=== PATIENT | female | born 1990 | race Caucasian/White ===

== ENCOUNTER 2017-03-27 01:30 | Emergency (ER) | payer OTHER ==
[2017-03-27] MEDS ORDERED: Ondansetron ODT 4 MG TAB ONE ×2 (02:33→05:29)
[2017-03-27 04:00] LABS: #Eosinphils 0.1 thou/uL (0.0-0.7); #Lymphocytes 2.3 thou/uL (1.20-3.40); #Monocytes 0.5 thou/uL (0.11-0.59); #Neutrophils 6.7 thou/uL (1.40-6.50); %Basophils 0.4 % (0.0-1.0); %Eosinophils 1.3 % (0.0-10.0); %Lymphocytes 24.1 % (21.0-51.0); %Monocytes 5.4 % (0.0-10.0); Hematocrit 41.5 % (36.0-47.0); Mean Platelet Volume 7.4 fL (7.4-10.4); White Blood Cell (WBC) Count 9.7 thou/uL (4.8-10.8)
[2017-03-27 04:16] LABS: ALT (SGPT) 12 U/L (8-55); AST (SGOT) 15 U/L (5-34); Alkaline Phosphatase 66 U/L (40-150); Anion Gap 13 mmol/L (10-20); BUN (Urea Nitrogen) 7 mg/dL (7.0-18.7); Bilirubin, Total 0.4 mg/dL (0.2-1.2); CK (CPK) 79 U/L (29-168); Calc. Creatinine Clearance 0 mL/min (70-130); Calcium 9.7 mg/dL (7.8-10.44); Carbon Dioxide 24 mmol/L (22-29); Chloride 105 mmol/L (98-107); Estimated GFR-MDRD Greater than 90; Globulin 3.4 g/dL (2.4-3.5); Lipase 53 U/L (8-78); Protein, Total 7.6 g/dL (6.0-8.3)
[2017-03-27 04:17] LABS: Troponin I Less than 0.010 ng/mL (< 0.028)
[2017-03-27 05:01] LABS: Bilirubin Negative (Negative); Blood, Urine Negative (Negative); Glucose, Urine (Dipstick) Negative (Negative); Ketone, Urine Negative (Negative); Nitrite Negative (Negative); Protein, Urine (Dipstick) Negative (Neg-Trace); Urobilinogen 0.2 mg/dL (0.2-1.0)
[2017-03-27 05:03] LABS: Bacteria/HPF Rare-Few HPF (None Seen); Hyaline Casts/LPF 0-3 HYALINE CAST LPF (0-3 Hyaline); Squamous Epithelial 0-3 HPF (0-3)
[2017-03-27] MEDS ORDERED: Lorazepam 1 MG TAB ONE (05:29)
--- NOTE | 2017-03-27 07:23 | RAD ---
CHEST 1 VIEW: Date: 03/27/17 HISTORY: Chest pain. Fever and cough. FINDINGS: Normal cardiac silhouette. Pulmonary vessels and hilum are normal. No consolidation or mass. No pneum othorax or osseous abnormality. IMPRESSION: No acute cardiopulmonary process. POS: PPP
== END 2017-03-27 05:54 | disposition home or self-care (01) ==
LOC: ERS 01:30
DX: R00.2 Palpitations (principal); N39.0 Urinary tract infection, site not specified
CPT/HCPCS: 36415; 36416; 71010; 80053; 81003; 81015; 82553; 83690; 84443; 84484; 84703; 85025; 85379; 87086; 93005; Q0162

== ENCOUNTER 2017-03-28 14:20 | Outpatient (CLI) | payer OTHER | END 2017-03-28 14:21 | disposition home or self-care (01) | LOC: BICRAD 14:20 | PROVIDERS: ATTEND Nurse Practitioner Family | DX: R06.02 Shortness of breath (principal) | CPT/HCPCS: 36415; 71020; 85379 ==

== ENCOUNTER 2017-03-29 19:06 | Emergency (ER) | payer OTHER ==
[2017-03-29 19:28] LABS: Bilirubin Negative (Negative); Blood, Urine Large (Negative); Glucose, Urine (Dipstick) Negative (Negative); Ketone, Urine > or equal to 80 mg/dL (Negative); Nitrite Negative (Negative); Protein, Urine (Dipstick) Trace mg/dL (Neg-Trace); Urobilinogen 0.2 mg/dL (0.2-1.0)
[2017-03-29 19:32] LABS: Bacteria/HPF Rare-Few HPF (None Seen); Hyaline Casts/LPF 0-3 HYALINE CAST LPF (0-3 Hyaline); RBC/HPF GREATER THAN 50-TNTC HPF (0-3)
[2017-03-29 19:35] LABS: #Basophils 0.1 thou/uL (0.0-0.2); #Eosinphils 0.1 thou/uL (0.0-0.7); #Lymphocytes 2.5 thou/uL (1.20-3.40); #Monocytes 0.8 thou/uL (0.11-0.59); #Neutrophils 4.8 thou/uL (1.40-6.50); %Basophils 0.8 % (0.0-1.0); %Eosinophils 0.8 % (0.0-10.0); %Lymphocytes 30.1 % (21.0-51.0); %Monocytes 9.7 % (0.0-10.0); Hematocrit 44.7 % (36.0-47.0); Mean Platelet Volume 7.7 fL (7.4-10.4); Red Blood Cell (RBC) Count 4.85 mill/uL (4.20-5.40); White Blood Cell (WBC) Count 8.2 thou/uL (4.8-10.8)
[2017-03-29 19:54] LABS: ALT (SGPT) 10 U/L (8-55); AST (SGOT) 15 U/L (5-34); Alkaline Phosphatase 71 U/L (40-150); Anion Gap 15 mmol/L (10-20); BUN (Urea Nitrogen) 6 mg/dL (7.0-18.7); Bilirubin, Total 1.2 mg/dL (0.2-1.2); Calc. Creatinine Clearance 0 mL/min (70-130); Calcium 9.7 mg/dL (7.8-10.44); Carbon Dioxide 24 mmol/L (22-29); Chloride 102 mmol/L (98-107); Estimated GFR-MDRD Greater than 90; Globulin 3.5 g/dL (2.4-3.5); Lipase 34 U/L (8-78); Protein, Total 8.1 g/dL (6.0-8.3)
[2017-03-29] MEDS ORDERED: Metoclopramide HCl 10 MG/2 ML VIAL ONE (19:55)
[2017-03-29] MEDS ORDERED: Famotidine/PF 20 mg/2ml Vial ONE (19:55)
== END 2017-03-29 22:26 | disposition home or self-care (01) ==
LOC: ERS 19:06
DX: R10.9 Unspecified abdominal pain (principal); R11.0 Nausea
CPT/HCPCS: 36415; 80053; 81003; 81015; 81025; 83690; 85025; 87086; 96365; 96368; 96372; J2765; S0028

== ENCOUNTER 2017-03-31 09:22 | Inpatient (IN) | payer OTHER ==
[2017-03-31] MEDS ORDERED: Ondansetron HCl/PF 4 MG/2 ML Vial ONE (09:56)
[2017-03-31 10:12] LABS: Bilirubin Negative (Negative); Blood, Urine Large (Negative); Clarity CLOUDY (Clear); Glucose, Urine (Dipstick) Negative (Negative); Leukocyte Small (Negative); Nitrite Negative (Negative); Protein, Urine (Dipstick) 30 mg/dL (Neg-Trace); Specific Gravity, Urine 1.023 (1.002-1.036); Urobilinogen 0.2 mg/dL (0.2-1.0)
[2017-03-31 10:14] LABS: #Eosinphils 0.1 thou/uL (0.0-0.7); #Lymphocytes 2.1 thou/uL (1.20-3.40); #Monocytes 0.5 thou/uL (0.11-0.59); #Neutrophils 3.6 thou/uL (1.40-6.50); %Basophils 0.7 % (0.0-1.0); %Eosinophils 1.1 % (0.0-10.0); %Lymphocytes 33.5 % (21.0-51.0); %Monocytes 8.5 % (0.0-10.0); %Neutrophils 56.2 % (42.0-75.0); Hemoglobin 14.5 g/dL (12.0-16.0); Mean Corpuscular HGB CONC 33.5 g/dL (32.0-36.0); Mean Corpuscular Volume 92.3 fl (81.0-99.0); Mean Platelet Volume 7.9 fL (7.4-10.4); Platelet Count 316 thou/uL (130-400); RBC Distribution Width 11.1 % (11.5-14.5); Red Blood Cell (RBC) Count 4.69 mill/uL (4.20-5.40); White Blood Cell (WBC) Count 6.4 thou/uL (4.8-10.8)
[2017-03-31 10:15] LABS: Bacteria/HPF None Seen HPF (None Seen); Hyaline Casts/LPF 0-3 HYALINE CAST LPF (0-3 Hyaline); Pathc Cast-AUWi Flag 0.94 (0-2.49); RBC/HPF GREATER THAN 50-TNTC HPF (0-3)
[2017-03-31 10:16] LABS: Pregnancy Test - Urine (BHCG) Negative (Negative); Pregu Control Background? CLEAR/WHITE (CLR/WHITE); Pregu Control Bar Appear? YES (CONTROL BAR); Specific Gravity 1.023 (1.002-1.036)
[2017-03-31 10:35] LABS: ALT (SGPT) 14 U/L (8-55); AST (SGOT) 21 U/L (5-34); Albumin 4.2 g/dL (3.5-5.0); Alkaline Phosphatase 66 U/L (40-150); Anion Gap 14 mmol/L (10-20); BUN (Urea Nitrogen) 5 mg/dL (7.0-18.7); Bilirubin, Total 1.1 mg/dL (0.2-1.2); Calc. Creatinine Clearance 0 mL/min (70-130); Calcium 9.8 mg/dL (7.8-10.44); Carbon Dioxide 24 mmol/L (22-29); Chloride 104 mmol/L (98-107); Estimated GFR-MDRD Greater than 90; Globulin 3.3 g/dL (2.4-3.5); Glucose 89 mg/dL (70-105); Lipase 44 U/L (8-78); Potassium 3.6 mmol/L (3.5-5.1); Protein, Total 7.5 g/dL (6.0-8.3); Sodium 138 mmol/L (136-145)
[2017-03-31] MEDS ORDERED: Ketorolac Tromethamine 30 MG/ML VIAL ONE (11:24)
[2017-03-31] MEDS ORDERED: Promethazine HCl 25 MG/ML VIAL ONE (12:06)
--- NOTE | 2017-03-31 13:09 | CT ---
CT ABDOMEN AND PELVIS WITH CONTRAST: Date: 03/31/17 HISTORY: Abdominal pain. COMPARISON: CT abdomen without contrast dated 11/10/03. FINDINGS: Lung bases are clear. No pericardial effusion. The appendix is not definitively seen, although there are no secondary signs of acute appendicitis. Kidneys are unremarkable. No hydronephrosis. There is a left interpolar renal calculus measuring 2.0 mm. No hydroureteronephrosis. The urinary bladder is without calculus. The skeleton is unremarkable. No dilated loops of large or small bowel. No significant adenopathy. Li steven, pancreas, spleen, and gallbladder are all normal. IMPRESSION: 1. Nonobstructive punctate left interpolar renal calculus measuring 2.0 mm. 2. Although the appendix is not definitively visualized, there are no secondary signs of appendiciti s. 3. No acute inflammatory process within the abdomen or pelvis. POS: PETER
[2017-03-31] MEDS ORDERED: cefTRIAXone\\ROCEPHIN 2 GM in Sodium Chloride 0.9% 100 ML IVPB SCH ×2 (13:30→17:00)
[2017-03-31] MEDS ORDERED: ISOVUE-370 76%-LOCM 1 ML ONE (13:42)
--- NOTE | 2017-03-31 15:22 | HP ---
DATE OF ADMISSION: 03/31/2017 REASON FOR ADMISSION: Abdominal pain and nausea and vomiting. HISTORY OF PRESENT ILLNESS: This is a pleasant 27-year-old female with no significant past medical h istory except a history of kidney stones at age 13 and also history of panic disorder. She recently presented to an outlying urgent care where she was found to have a UTI; they started her on Macrobid. She was later seen in our office where she was very emotional, having crying episodes. At that time, she was advised to take her Prozac daily. She was only taking it 2-3 times a week. Also, at that time, she did complain of some diarrhea and nausea and outlying tests were ordered. Al so, at that time in the office, she was tachycardic and having very atypical chest pain, and a D-dime r was ordered as well. All of her labs came back normal except the stool studies were pending. Unfo rtunately, the patient had nausea and vomiting this morning with now left upper quadrant pain she pre sented to the hospital where she was found to have a kidney stone. The patient did receive antiemeti c and pain medication control, and at this time, she appears to be hemodynamically stable, in no acut e distress. She denies any more chest, arm, or back pain. She also denies any PND, orthopnea, or palpitations. PAST MEDICAL HISTORY: As above. ALLERGIES: None. MEDICATIONS: Prozac dose, I believe, 20 mg a day, also Zofran was called in, and also she is taking Tylenol p.r.n. FAMILY HISTORY: Noncontributory. SOCIAL HISTORY: There is no tobacco use. She is engaged to be . REVIEW OF SYSTEMS: General: Admits to weakness and fatigue and fever and chills. HEENT: No diplop ia, amaurosis fugax, tinnitus, sore throat, or hoarseness. Cardiovascular: Now, no chest, arm, or b ack pain. Pulmonary: No PE, cough, hemoptysis. Gastrointestinal: See history of present illness. Genitourinary: No dysuria, nocturia, polyuria. Endocrine: No polyphagia, polydipsia, or heat or c old intolerance. Musculoskeletal: No lupus, arthralgia, myopathy. Neurologic: No history of TIA o r seizure. All systems are negative. PHYSICAL EXAMINATION: GENERAL: Pleasant female, who appears to be in no acute distress. LABORATORY DATA: Her CBC is totally normal with a normal white blood count. Her CMP was normal with sodium 138, potassium 3.6, and BUN and creatinine are normal. Her UA did show a UTI. Also, her abd omen and pelvis CAT scan did show a nonobstructive renal calculus measuring 2.0 mm. ASSESSMENT: 1. Urinary tract infection. 2. Nephrolithiasis. 3. History of anxiety disorder. 4. Diarrhea, rule out Clostridium difficile. 5. Nausea, probably related to all of her urinary problems. However, we will rule out Helicobacter pylori infection as well. PLAN: 1. The patient will be admitted where we will begin IV antibiotics. We will also give IV antiemetic s and IV pain control. We will also check H. pylori and stool for C. difficile. We will also give T ylenol for fever. We will also check a CBC and CMP in the morning. 2. We will ask urologist promotions executive to see the patient in consultation for kidney stones. The patient verbalized understanding and all of her questions answered to her satisfaction. This is Jenna Penny [employer]GE-C dictating for Kiko Mena M.D.
[2017-03-31] MEDS ORDERED: Ondansetron HCl/PF 4 MG/2 ML Vial SLOW IVP PRN (16:29)
[2017-03-31] MEDS ORDERED: Ketorolac Tromethamine 30 MG/ML VIAL IVP PRN (16:29)
[2017-03-31] MEDS ORDERED: Acetaminophen 325 MG TAB PO PRN (16:30)
[2017-03-31] MEDS: Sodium Chloride 0.9% 1,000 ML IV SCH ×2 (17:02→23:24)
--- NOTE | 2017-04-01 03:31 | CON ---
DATE OF HOSPITAL ADMISSION: 03/31/2017 DATE OF CONSULTATION REQUESTING REPORT: 03/31/2017 CHIEF COMPLAINT: 1. Approximately 3 weeks of nausea, vomiting, and diarrhea with bilateral abdominal pain symptoms. The patient reports a T-shaped pain pattern in her abdomen. 2. Past history of kidney stones. 3. Incidental finding of 2 mm nonobstructive left interpolar calculus that is 2 mm stone. HISTORY OF PRESENT ILLNESS: Ms. 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 She was previously taken care of by Dr. Gerson Espinosa and had a probable calcium oxalate kidney stone about 15 years ago. She passed her ston es without requirement for surgical intervention. She has not been on a special diet with respect to that. She was simply drinking water in the past, over the last 3 weeks or so, she has been very sheldon seated and having diarrhea. The patient is currently planning to be and reports that today s he was trying on her wedding dress, she became severely nauseated and had emesis. The patient report s she had abdominal pain symptoms at that point, also reports that she had diarrhea that develops sub sequent to this. None of her household contacts have had diarrhea. The patient does report prior to trying on her dress, she had received antibiotics for oral surgery, she had some wisdom tooth extrac tion and a colposcopy performed with a close proximity of each other. She was on some type of antibi otic, possibly a penicillin for her tooth extraction. The patient has failed to improve over the thr ee-week period and continues to have nausea, loss of appetite and diarrhea. She reports some of her diarrhea has a bloody or red appearance to it, sometimes her stool is dark in color. The patient is troubled by her, failure to improve despite avoidance of eating, seems to not result i n any significant improvements. She does not report any focal unilateral pain instead, she reports h er pain symptoms are exactly in the midline, almost like a T with a cross dimension passing directly beneath her breasts and the pain symptoms are directly in the midline. The patient does not report eating any specific foods prior to her onset of symptoms, she did report eating out at [employer] and [employer]. She does not aware of any other persons eating with her be coming ill. 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 PAST MEDICAL HISTORY: 1. Distant history of kidney stones as a child. 2. Depression. PAST SURGICAL HISTORY: The patient had a recent tooth extraction and a colposcopy. No other gynecol ogic or other surgeries. SOCIAL HISTORY: The patient is a nonsmoker. She does drink alcohol, but has had none in the recent past. She is currently engaged to be and works in retail in the [employer]. FAMILY MEDICAL HISTORY: Noncontributory. ALLERGIES: No known drug allergies. REVIEW OF SYSTEMS: General: The patient reports extreme weakness and fatigue after her symptoms dev eloped. Head, eyes, ears, nose and throat: Negative. Cardiovascular: The patient reports rapid he art rate and palpitations. She feels that is very difficult for to walk any significant distance and she feels that she is probably dehydrated. Pulmonary: No past history of pulmonary emboli or pulmo nary problems. She is not coughing up, any mucus or having any difficulties with breathing. She mcfarlane s not feel short of breath. Gastrointestinal: The patient reports that she has passed both dark col ored stool and some that are red. She thinks some of this may be associated with some antibiotics th at she is taking. The patient does not report constipation at this time rather diarrhea. She also r eports nausea and vomiting. The symptoms have been present for about 3 weeks. Genitourinary: The carol ann barry denies dysuria. She does report that she has had nocturia in the past and might get up as man y as 10 times at night. Endocrinologic: No past history of diabetes, no significant polydipsia, alt indra the patient reports drinking large volumes of water to prevent kidney stones in the past[place] [facility] [place]. Neurologic: Negative for TIA and other types of neurologic symptoms. The carol ann barry does report she has had a little numbness in her right lower extremity since she has been dehy drated, but never before that. PHYSICAL EXAMINATION: GENERAL: This is a pleasant weight appropriate for height white female in no apparent distress. VITAL SIGNS: Temperature is 99.3, pulse 86, respirations 20, O2 saturation is 96%. HEAD, EYES, EARS, NOSE AND THROAT: Extraocular movements are intact. Sclerae are anicteric. Oropha rynx is clear. NECK: Supple. LUNGS: Clear to auscultation bilaterally. CARDIAC: Regular rate and rhythm without murmur, rub or gallop. BACK: There is no costovertebral angle tenderness on either side. ABDOMEN: Soft and nontender. Percussion elicits no point tenderness within the patient's abdomen. There are no peritoneal signs present. PELVIC: Deferred. The patient reports that she is currently on menses. EXTREMITIES: Within normal limits. There is no clubbing, cyanosis or edema. NEUROLOGIC: Cranial nerves III through XI appear to be grossly intact. Gait was not assessed during the course of this evaluation, although the patient does have the ability to move all of her extremi ties. She reports she is fatigued, probably due to dehydration. LABORATORY STUDIES: The patient's urinalysis should be discounted by the patient's self report, she is currently on her menses and reports that she did not have what would be considered a true clean ca tch. She reports this is likely contaminated with her current menses. Urine specific gravity on thi s was notable at 1.023 indicating a trend towards dehydration. There was protein and ketones present as well as a large amount of blood consistent with menstrual contamination. Squamous epithelial jeny ls are also present. This test could be repeated with a catheterized specimen. A urine te st was negative. Hematologic profile shows a white count of 6400, there is no evidence of left shift, neutrophil perce ntage is 56.2. ANC is relatively low at 3600. There is no evidence of monocytosis either. Serum ch emistry shows a blood urea nitrogen of 5 with a creatinine of 0.67. Estimated glomerular filtration rate is greater than 90. No electrolyte abnormalities present. RADIOLOGIC STUDIES: A CT scan of the abdomen and pelvis was obtained on 03/31/2017, I reviewed this study, this was performed as a contrast study and this can limit the identification of kidney stones. There is evidence of a left interpolar renal calculus measuring approximately 2 mm. There is no ev idence of hydronephrosis or hydroureter on either side. There is no evidence of bladder calculus. T here does not appear to be any significant stranding about the patient's kidneys on either side, alth ough limited amounts of abdominal fat can limit the assessment for inflammatory issues. ASSESSMENT AND PLAN: 1. Genitourinary concerns. The patient's urinalysis is contaminated with menses and should be disco unted entirely. Catheterized urine specimen should be obtained if there are concerns regarding the u rinary tract. The patient is asymptomatic with respect of dysuria. Her symptom presentation would b e highly atypical for a kidney stone as there is no lateralization to the patient's symptoms. Her sy mptoms are exactly in the midline by her report forming a T or an X, passing directly beneath her wily ast and in the midline of the chest extending into the abdomen. The patient does report some symptom s which are lateralizing to the left and right side, but these move about which would indicate colon involvement. This fits with the patient's gastrointestinal primary issues. I highly doubt the patie nt's current presentation has anything to do with her 2 mm stone. This is an incidental finding and the patient who previously had kidney stones. The patient is suitable for outpatient followup in my clinic for Urology risk evaluation and assessment. Some of the treatments for calcium oxalate kidney stones have changed in the last decade or so. 2. Gastrointestinal complaints. The patient's primary presentation has to do with gastrointestinal issues. The patient appears to have some type of gastrointestinal disorder, consideration and evalua tion by a hoisting laborer may be helpful. 3. Concerns for pyelonephritis. There is no evidence of stranding about the patient's kidneys on ei ther side. She does not have an elevated white count. There is no left shift and the patient's urin alysis, which was contributed to the assessment of possible pyelonephritis should be discounted and r eplaced with an actual catheterized urine specimen. Would recommend a catheterized urine specimen wo uld be obtained if patient develops dysuria type symptoms. For this new initial patient consultation and evaluation as an inpatient, over 70 minutes of consulta tion time was spent on evaluation and assessment of the patient review of studies and consultation wi th the patient's family.
[2017-04-01 05:25] LABS: #Basophils 0.1 thou/uL (0.0-0.2); #Eosinphils 0.1 thou/uL (0.0-0.7); #Lymphocytes 3.1 thou/uL (1.20-3.40); #Monocytes 0.6 thou/uL (0.11-0.59); #Neutrophils 2.7 thou/uL (1.40-6.50); %Basophils 0.8 % (0.0-1.0); %Eosinophils 1.9 % (0.0-10.0); %Lymphocytes 46.6 % (21.0-51.0); %Monocytes 9.6 % (0.0-10.0); Mean Corpuscular HGB CONC 33.2 g/dL (32.0-36.0); Mean Corpuscular Hemoglobin 31.1 pg (27.0-31.0); Mean Corpuscular Volume 93.6 fl (81.0-99.0); Mean Platelet Volume 7.6 fL (7.4-10.4); Platelet Count 255 thou/uL (130-400); RBC Distribution Width 11.1 % (11.5-14.5); Red Blood Cell (RBC) Count 4.19 mill/uL (4.20-5.40); White Blood Cell (WBC) Count 6.7 thou/uL (4.8-10.8)
[2017-04-01 05:49] LABS: ALT (SGPT) 9 U/L (8-55); AST (SGOT) 14 U/L (5-34); Albumin 3.6 g/dL (3.5-5.0); Alkaline Phosphatase 57 U/L (40-150); Anion Gap 9 mmol/L (10-20); BUN (Urea Nitrogen) Less than 4 mg/dL (7.0-18.7); Calc. Creatinine Clearance 146 mL/min (70-130); Calcium 8.7 mg/dL (7.8-10.44); Carbon Dioxide 25 mmol/L (22-29); Chloride 108 mmol/L (98-107); Estimated GFR-MDRD Greater than 90; Globulin 2.7 g/dL (2.4-3.5); Glucose 81 mg/dL (70-105); Protein, Total 6.3 g/dL (6.0-8.3); Sodium 138 mmol/L (136-145)
--- NOTE | 2017-04-01 09:31 | PRG ---
DATE OF SERVICE: 04/01/2017 This is LINDSEY Barreto-Chad dictating a progress note for Kiko Mena M.D. SUBJECTIVE: The patient is still nauseated. Urology came by yesterday and does not felt like her ki dney stone is the culprit of her problem. The patient does feel a little bit better as far as having abdominal discomfort, but she is still really nauseated. She is on control and has had a tre od. However, I do not believe whether checked of her , I will go ahead and rule that out as well. PHYSICAL EXAMINATION: GENERAL: Upon evaluation, she is awake. She is alert and oriented to person, place, and time. She is on IV fluids. VITAL SIGNS: Showed temperature 98.7, her blood pressure 127/86, and pulse 84. NECK: Supple with no increased JVP or carotid bruit. Carotid had good upstroke with no thyromegaly. COR: Regular rate and rhythm. CHEST: Symmetrical. Clear to auscultation and percussion. ABDOMEN: Soft and nontender with normoactive bowel sounds. No bruit or organomegaly. EXTREMITIES: No edema or cyanosis. She had palpable pedal pulses. SKIN: There is no evidence of ulceration lesion, or rash. NEUROLOGIC: She is awake, alert, and oriented to person, place, and time. LABORATORY DATA: Her stool studies were negative. ASSESSMENT: 1. Abdominal discomfort, improved. 2. Nausea. 3. Recent urinary tract infection. PLAN: We will consult Dr. Hoskins regarding nausea and abdominal discomfort. We will also rule out pre gnancy by urine HCG. The patient verbalized understanding and all questions answered to satisfaction .
[2017-04-01] MEDS: Sodium Chloride 0.9% 1,000 ML IV SCH ×2 (10:09→22:01)
[2017-04-01] MEDS: cefTRIAXone\\ROCEPHIN 2 GM in Sodium Chloride 0.9% 100 ML IVPB SCH (14:28)
[2017-04-01] MEDS ORDERED: FLU VACC QS2017-18 36 mo. & older 0.5 ML SYRINGE IM ONE (21:00)
--- NOTE | 2017-04-01 23:44 | CON ---
DATE OF CONSULTATION: 04/01/2017 REFERRING PHYSICIANS: Kiko Mena M.D. - Jenna Penny [facility] REASON FOR CONSULTATION: Abdominal pain, persistent nausea. HISTORY OF PRESENT ILLNESS: Ms. Breann Khan is a very pleasant 27-year- old female hospitalized with persistent nausea and also vague abdominal pain. The patient got sick almost 3-1/2 weeks ago with abdominal cramping pain, nausea, vomiting and diarrhea. Her symptoms lasted for about 3 days. Subsequently, her diarrhea and vomiting subsided. Also, abdominal pain resolved. She has been having intermittent nausea over the last 3 weeks. She came to the ER on with same complaint and she was sent home with _ symptomatic treatment. She came back to the ER yesterday with nausea and also burning pain across the upper abdomen. She had no vomiting. There is no history of fever. Initially, it was felt the patient would have UTI and was hospitalized. She is on IV antibiotics. She had been seen by Dr. Bishop for Urology Services and states it was felt that she had no UTI. The patient stopped taking medication for about the last 3 weeks. Does not feel like eating because of nausea. Her bowel movements are regular. She denies any heartburn, indigestion, dysphagia or odynophagia. Yesterday morning, she started having epigastric burning pain, which is across the upper abdomen radiating down to the suprapubic area. Today, she is actually feeling better except for nausea. Her bowel movements are fairly regular. The patient had no similar symptoms in the past. She has no relevant history. ALLERGIES: None. SOCIAL HISTORY: The patient does not smoke or drink alcohol. MEDICAL ILLNESSES: History of kidney stones when she was a child. No relevant medical history. SURGERIES: None. MENSTRUAL HISTORY: Periods are regular. She has oral contraceptives. LMP at the present time. REVIEW OF SYSTEMS: CENTRAL NERVOUS SYSTEM: No chronic headache, no syncope, no seizure disorder. RESPIRATORY SYSTEM: No chronic cough, hemoptysis, dyspnea. CARDIOVASCULAR SYSTEM: No palpitation, no chest pain, no orthopnea or PND. GASTROINTESTINAL: As in history of present illness. GENITOURINARY: No dysuria, hematuria or frequency of urination. GYNECOLOGICAL: Not relevant. NEUROPSYCHIATRIC: History of depression. PHYSICAL EXAMINATION: GENERAL: This is a very young comfortable white female who appears comfortable in no distress. VITAL SIGNS: Actually stable. She is afebrile. Pulse is 96, blood pressure 133/87. HEENT: Conjunctivae clear. NECK: Supple. No adenitis or thyromegaly noted. CARDIOVASCULAR: First and second heart sounds normal. LUNGS: Clear to auscultation. ABDOMEN: Soft to palpate. Abdomen is actually nontender. There is no organomegaly or masses. Bowel sounds normal. EXTREMITIES: Reveal no edema. LABORATORY DATA: CBC: WBC 6700, hemoglobin 13, hematocrit 39.2, MCV 93.6, platelet count 255,000, polymorphs 41, lymphocytes 26, monocytes 9. Serum chemistries: Sodium is 138, potassium 4, chloride 108, bicarbonate 25, anion gap is 9, BUN is less than 4, creatinine 0.67, glucose 81, calcium 8.7, bilirubin 1, AST is 14, ALT 9, alkaline phosphatase 57, total protein 6.3, albumin 3.6. Urine culture, no growth at the present time. Urinalysis showed trace protein, the wbc 7-10, rbc 7-10. Urine test negative. Abdominal CAT scan done, small left renal calculi, otherwise the CAT scan is negative. CLINICAL IMPRESSION: A 27-year-old female with persistent nausea and abdominal pain. A CAT scan is basically negative. The nausea has been persistent over the last 3 weeks off and on. She has no painful swallowing acid reflux symptoms. Her workup has been basically negative. Overall impression is very much possible that patient can simply have post-infectious irritable bowel syndrome. The physical findings are very minimal. Also, the lab data was completely normal. I did speak to Ms. Abad for her to have an EGD and she is agreeable. Unfortunately, she had some and crackers this morning. The plan is to go for EGD tomorrow morning and I will make further recommendations. MTDD
[2017-04-02] MEDS: Sodium Chloride 0.9% 1,000 ML IV SCH ×3 (05:57→16:17)
[2017-04-02] MEDS ORDERED: Diprivan 40 ML ONE (07:48)
[2017-04-02] MEDS ORDERED: Propofol 200 MG/20 ML VIAL ONE (09:57)
[2017-04-02] MEDS ORDERED: Diphenoxylate HCl/Atropine Tablet PO PRN (10:18)
[2017-04-02] MEDS: Sucralfate 1 GM TAB PO SCH ×3 (11:55→20:26)
[2017-04-02] MEDS: Ondansetron ODT 4 MG TAB PO SCH ×3 (12:56→20:25)
[2017-04-02] MEDS: cefTRIAXone\\ROCEPHIN 2 GM in Sodium Chloride 0.9% 100 ML IVPB SCH (14:05)
--- NOTE | 2017-04-02 15:09 | OP ---
DATE OF PROCEDURE: 04/02/2017 OPERATIVE PROCEDURE: Esophagogastroduodenoscopy with biopsy. PREOPERATIVE DIAGNOSES: Abdominal pain and nausea. POSTOPERATIVE DIAGNOSES: 1. A shallow ulcer over the gastric antrum close to the pyloric opening. 2. Mild gastritis. PROCEDURE IN DETAIL: The patient was placed on her left lateral position and was given sedation by [facility] Anesthesia Department. A [employer]ax video gastroscope under direct vision was passed down the orophar ynx, past the GE junction, into the stomach and subsequently into the descending duodenum. The esoph ageal mucosa appears normal throughout the esophagus. The GE junction, no pathology seen. The fundu s, cardia and gastric body, no pathology seen. Over the gastric antrum close to the pyloric opening, she has shallow ulceration. Mild gastritis seen. The duodenal bulb and descending duodenum, no pat hology seen. Biopsies were obtained from the gastric antrum and gastric body. The stomach was decom pressed and the scope removed. RECOMMENDATIONS: 1. Pantoprazole 40 once a day. 2. Diet as tolerated. 3. Await gastric biopsy and decide whether she needs any appropriate antibiotic therapy for possible Helicobacter.
[2017-04-03] MEDS: Sodium Chloride 0.9% 1,000 ML IV SCH ×2 (02:25→10:33)
[2017-04-03] MEDS: Sucralfate 1 GM TAB PO SCH ×4 (06:06→21:00)
[2017-04-03] MEDS: Ondansetron ODT 4 MG TAB PO SCH ×3 (09:17→17:22)
[2017-04-03] MEDS: cefTRIAXone\\ROCEPHIN 2 GM in Sodium Chloride 0.9% 100 ML IVPB SCH (14:09)
[2017-04-03] MEDS ORDERED: Ketorolac Tromethamine 30 MG/ML VIAL IVP PRN (18:38)
[2017-04-03] MEDS: Metoclopramide HCl 10 MG TAB PO SCH (18:53)
[2017-04-03] MEDS ORDERED: Sodium Chloride 0.9% 20 ML ONE (19:42)
[2017-04-04] MEDS: Metoclopramide HCl 10 MG TAB PO SCH ×2 (01:08→09:19)
[2017-04-04] MEDS: Sodium Chloride 0.9% 1,000 ML IV SCH ×3 (01:29→01:47)
[2017-04-04 05:40] LABS: #Basophils 0.1 thou/uL (0.0-0.2); #Eosinphils 0.3 thou/uL (0.0-0.7); #Lymphocytes 2.6 thou/uL (1.20-3.40); #Monocytes 0.9 thou/uL (0.11-0.59); %Basophils 0.7 % (0.0-1.0); %Eosinophils 4.3 % (0.0-10.0); %Lymphocytes 37.7 % (21.0-51.0); %Monocytes 13.1 % (0.0-10.0); %Neutrophils 44.1 % (42.0-75.0); Hemoglobin 13.4 g/dL (12.0-16.0); Mean Corpuscular HGB CONC 33.3 g/dL (32.0-36.0); Mean Corpuscular Volume 93.2 fl (81.0-99.0); Platelet Count 249 thou/uL (130-400); RBC Distribution Width 11.1 % (11.5-14.5); Red Blood Cell (RBC) Count 4.31 mill/uL (4.20-5.40); White Blood Cell (WBC) Count 6.8 thou/uL (4.8-10.8)
[2017-04-04 05:59] LABS: Anion Gap 11 mmol/L (10-20); BUN (Urea Nitrogen) Less than 4 mg/dL (7.0-18.7); Calc. Creatinine Clearance 142 mL/min (70-130); Calcium 9.3 mg/dL (7.8-10.44); Carbon Dioxide 28 mmol/L (22-29); Chloride 105 mmol/L (98-107); Estimated GFR-MDRD Greater than 90; Glucose 82 mg/dL (70-105); Potassium 3.7 mmol/L (3.5-5.1); Sodium 140 mmol/L (136-145)
[2017-04-04] MEDS: Sucralfate 1 GM TAB PO SCH ×3 (06:07→15:55)
[2017-04-04 09:12] LABS: H. pylori IgA ABS Less than 9.0 units (0.0-8.9); H. pylori IgG ABS Less than 0.9 U/mL (0.0-0.8); H. pylori IgM ABS Less than 9.0 units (0.0-8.9)
[2017-04-04] MEDS ORDERED: Cephalexin 250 MG CAP PO SCH (13:00)
[2017-04-04] MEDS ORDERED: Metoclopramide HCl 10 MG TAB PO SCH (13:00)
[2017-04-04 17:03] VITALS: BP 132/90; TEMP 98.4
== END 2017-04-04 17:48 | disposition home or self-care (01) | DRG 690 ==
LOC: ERS 09:22 → OBSVTOIN 13:24 → ERHOLD 13:24 → 3SE 16:12 → 3SW 04-01 09:37
PROVIDERS: ADMIT Specialist; ATTEND Specialist
PROC: 0DB68ZX Excision of Stomach, Via Natural or Artificial Opening Endoscopic, Diagnostic (ICD-10-PCS; principal; 2017-04-02)
PROC: 0DB78ZX Excision of Stomach, Pylorus, Via Natural or Artificial Opening Endoscopic, Diagnostic (ICD-10-PCS; 2017-04-02)
DX: N39.0 Urinary tract infection, site not specified (principal); E86.0 Dehydration; K25.9 Gastric ulcer, unspecified as acute or chronic, without hemorrhage or perforation; F41.0 Panic disorder [episodic paroxysmal anxiety]; N20.0 Calculus of kidney; R31.9 Hematuria, unspecified; T45.0X5A Adverse effect of antiallergic and antiemetic drugs, initial encounter; Z87.442 Personal history of urinary calculi; R19.7 Diarrhea, unspecified; R11.2 Nausea with vomiting, unspecified
CPT/HCPCS: 36415; 71020; 74177; 80048; 80053; 81003; 81015; 81025; 83605; 83690; 85025; 85379; 86140; 87045; 87046; 87086; 87324; 87338; 87449; 87899; 88305; 88312; 96361; 96365; 96366; 96367; 96375; A4216; J0696; J1885; J2405; J2550; J2704; J7050; Q0162

== ENCOUNTER 2020-11-19 07:05 | Outpatient (CLI) | payer OTHER | END 2020-11-19 07:06 | disposition home or self-care (01) | LOC: BICULT 07:05 | PROVIDERS: ATTEND Family Medicine | DX: R10.9 Unspecified abdominal pain (principal) | CPT/HCPCS: 76770 ==

== ENCOUNTER 2021-04-26 17:34 | Emergency (ER) | payer OTHER ==
[2021-04-26 19:04] LABS: Bilirubin Negative (Negative); Blood, Urine Negative (Negative); Clarity Turbid (Clear); Glucose, Urine (Dipstick) Normal (Negative); Ketone, Urine Negative (Negative); Leukocyte Negative Leu/uL (Negative); Nitrite Negative (Negative); Protein, Urine (Dipstick) Negative (Neg-Trace)
[2021-04-26 19:06] LABS: Pregnancy Test - Urine (BHCG) Negative (Negative); Pregu Control Background? CLEAR/WHITE (CLR/WHITE); Pregu Control Bar Appear? YES (CONTROL BAR)
[2021-04-26 19:14] LABS: #Eosinphils 0.3 thou/uL (0.0-0.7); #Lymphocytes 3.7 thou/uL (1.20-3.40); #Monocytes 0.9 thou/uL (0.11-0.59); #Neutrophils 5.7 thou/uL (1.40-6.50); %Basophils 0.4 % (0.0-1.0); %Eosinophils 3.1 % (0.0-10.0); %Lymphocytes 34.6 % (21.0-51.0); %Neutrophils 53.9 % (42.0-75.0); Hemoglobin 13.6 g/dL (12.0-16.0); Mean Corpuscular HGB CONC 33.3 g/dL (32.0-36.0); Mean Corpuscular Volume 87.1 fL (78.0-98.0); Mean Platelet Volume 7.8 fL (7.4-10.4); Platelet Count 346 thou/uL (130-400); RBC Distribution Width 11.6 % (11.5-14.5); Red Blood Cell (RBC) Count 4.69 mill/uL (4.20-5.40); White Blood Cell (WBC) Count 10.6 thou/uL (4.8-10.8)
[2021-04-26 19:35] LABS: ALT (SGPT) 12 U/L (8-55); AST (SGOT) 15 U/L (5-34); Albumin 4.1 g/dL (3.5-5.0); Alkaline Phosphatase 115 U/L (40-110); Anion Gap 14 mmol/L (10-20); BUN (Urea Nitrogen) 8 mg/dL (7.0-18.7); Bilirubin, Total 0.4 mg/dL (0.2-1.2); Calc. Creatinine Clearance 0 mL/min (70-130); Calcium 9.4 mg/dL (7.8-10.44); Carbon Dioxide 25 mmol/L (22-29); Chloride 103 mmol/L (98-107); Globulin 3.5 g/dL (2.4-3.5); Glucose 90 mg/dL (70-105); Lipase 41 U/L (8-78); Potassium 3.7 mmol/L (3.5-5.1); Protein, Total 7.6 g/dL (6.0-8.3); Sodium 138 mmol/L (136-145)
[2021-04-28 20:57] LABS: Chlamydia by PCR Not Detected (NotDetected); GC by PCR Not Detected (NotDetected)
== END 2021-04-26 22:07 | disposition home or self-care (01) ==
LOC: ERS 17:34
DX: B37.3 Candidiasis of vulva and vagina (principal)
CPT/HCPCS: 36415; 80053; 81003; 81025; 83690; 85025; 87480; 87491; 87510; 87591; 87660; 99283

== ENCOUNTER 2024-03-26 13:12 | Outpatient (CLI) | payer OTHER | END 2024-03-26 13:13 | disposition home or self-care (01) | LOC: BICRAD 13:12 | PROVIDERS: ATTEND Family Medicine | DX: R05.1 Acute cough (principal) | CPT/HCPCS: 71046 ==

== ENCOUNTER 2025-03-02 08:58 | Outpatient (CLI) | payer OTHER | END 2025-03-02 08:59 | disposition home or self-care (01) | LOC: ULT 08:58 | PROVIDERS: ATTEND Physician Assistant Medical | DX: K62.5 Hemorrhage of anus and rectum (principal); R93.2 Abnormal findings on diagnostic imaging of liver and biliary tract | CPT/HCPCS: 76705 ==